=== PATIENT | male | born 1955 | race Caucasian/White ===

== ENCOUNTER 2017-02-27 11:42 | Emergency (ER) | payer OTHER ==
[~2017-02-27] VITALS: Ht 172.7 cm; Wt 99.8 kg
--- NOTE | 2017-02-27 11:46 | ED.ADGEN ---
Adult General Chief Complaint Chief Complaint Finger laceration [facility] HPI Patient is a 61 year old male who presents with pinky laceration. He was working on a piece of machinery when he caught the side of speaking a screw sustaining a laceration. He states his tetanus has been updated within the last 5 years. He denies any numbness tingling or weakness in his finger. Review of Systems Review of Systems Constitutional: Denies fever or chills [] Eyes: Denies change in visual acuity, redness, or eye pain [] HENT: Denies nasal congestion or sore throat [] Respiratory: Denies cough or shortness of breath [] Cardiovascular: No additional information not addressed in HPI [] GI: Denies abdominal pain, nausea, vomiting, bloody stools or diarrhea [] : Denies dysuria or hematuria [] Musculoskeletal: Denies back pain or joint pain [] Integument: 1.5 cm laceration of the left lateral fifth digit Neurologic: Denies headache, focal weakness or sensory changes [] Endocrine: Denies polyuria or polydipsia [] Current Medications Current Medications Current Medications Medications (Trade) Dose Ordered Sig/Vangie Start Time Stop Time Status Last Admin Dose Admin Lidocaine/Sodium Bicarbonate (Buffered Lidocaine 1%) 3 ml 1X ONCE 02/27/17 12:30 02/27/17 12:31 Allergies Allergies Allergies Coded Allergies Type Severity Reaction Last Updated Verified No Known Drug Allergies 02/27/17 No Physical Exam Physical Exam Constitutional: Well developed, well nourished, no acute distress, non-toxic appearance. [] HENT: Normocephalic, atraumatic, bilateral external ears normal, oropharynx moist, no oral exudates, nose normal. [] Eyes: PERRLA, EOMI, conjunctiva normal, no discharge. [] Neck: Normal range of motion, no tenderness, supple, no stridor. [] Cardiovascular:Heart rate regular rhythm, no murmur [] Lungs & Thorax: Bilateral breath sounds clear to auscultation [] Abdomen: Bowel sounds normal, soft, no tenderness, no masses, no pulsatile masses. [] Skin: Warm, dry, no rash. 1.5 cm laceration over the left lateral fifth digit. Back: No tenderness, no CVA tenderness. [] Extremities: No tenderness, no cyanosis, no clubbing, ROM intact, no edema, left fifth digit able to flex and extend at the PIP and DIP joint, sensation intact to light touch. [] Neurologic: Alert and oriented X 3, normal motor function, normal sensory function, no focal deficits noted. [] Psychologic: Affect normal, judgement normal, mood normal. [] Current Patient Data Vital Signs Vital Signs Date Time Temp Pulse Resp B/P Pulse Ox O2 Delivery O2 Flow Rate FiO2 02/27/17 11:42 98.6 85 20 95 Room Air EKG EKG [] Radiology/Procedures Radiology/Procedures [] Course & Med Decision Making Course & Med Decision Making Pertinent Labs and Imaging studies reviewed. (See chart for details) The area was cleaned with pressured saline and skin glue was used to repair the area. Patient tolerated procedure well. His tetanus is up-to-date. He is instructed to leave this finger splint on for the next 2-3 days and if the wound opens back up to close it with a Band-Aid. He is to watch for any signs of fevers chills redness or infection. Final Impression Final Impression Finger laceration Problems: Dragon Disclaimer Dragon Disclaimer This electronic medical record was generated, in whole or in part, using a voice recognition dictation system. Laceration Repair Lac Repair Indication: Finger laceration Procedure: The patient was placed in the appropriate position. The area was then sterile saline. The laceration was skin glue. The wound area was then dressed with protective splint. Total repaired wound length: 1.5 cm. The patient tolerated the procedure well. Complications: No COMPLICATIONS. ALIDA MARTIN MD February 27, 2017 11:46
[2017-02-27] MEDS ORDERED: LIDOCAINE WITH 8.4% SOD BICARB 3 ML DISP.SYRIN. IJ ONE (12:30)
[2017-02-27 12:45] VITALS: BP 122/75
== END 2017-02-27 12:41 | disposition home or self-care (01) ==
LOC: ER 11:42
DX: S61.217A Laceration without foreign body of left little finger without damage to nail, initial encounter (principal); W23.0XXA Caught, crushed, jammed, or pinched between moving objects, initial encounter; Y93.89 Activity, other specified; Y92.89 Other specified places as the place of occurrence of the external cause; Y99.8 Other external cause status
CPT/HCPCS: 12001; 99283-25